=== PATIENT | male | born 1985 | race Caucasian/White ===

== ENCOUNTER 2024-01-06 16:21 | Emergency (ER) | payer OTHER, SELFPAY ==
[2024-01-06] VITALS (10 sets, daily range): BP systolic 136–154; BP diastolic 80–90; PULSE 67–80; RESP 12–20; TEMP 37.7; O2SAT 98–100
--- NOTE | ~2024-01-06 | XR_ITS ---
EXAMINATION: XR chest 1V portable DATE: 01/06/2024 16:48 INDICATION: Intermittent chest pain with palpitations TECHNIQUE: frontal view of the chest was obtained. COMPARISON: None FINDINGS: The lungs are clear with no focal airspace opacities, pulmonary edema, pleural effusion or pneumothor ax. The cardiomediastinal silhouette is normal. Visualized bones and soft tissues are unremarkable. IMPRESSION: 1. No acute cardiopulmonary disease. Reviewed, dictated and finalized at location A.
--- NOTE | 2024-01-06 16:22 | ECG_ITS ---
Measurements Intervals [place] Rate: 69 P: 55 NH: 141 QRS: 47 QRSD: 96 T: 27 QT: 389 QTc: 419 Interpretive Statements SINUS RHYTHM BASELINE ARTIFACT- I, II, III, AVR, AVL, AVF, V1-V6 NORMAL ECG NO PREVIOUS ECG AVAILABLE FOR COMPARISON Electronically Signed On 01-06-2024 19:21:12 CDT by Sky Coulter D.O.
[2024-01-06 16:40] LABS: Basophils Percent Auto 0.5 % (0.2-1.2); Eosinophils Percent Auto 0.5 % (0-4.4); Hematocrit 47.7 % (42.0-52.0); Immature Granulocyte Absolute 0.05 K/mm3 (0.00-0.031); Immature Granulocyte Percent A 0.6 % (0-0.5); Lymphocytes Absolute Auto 1.96 K/mm3 (0.9-3.2); Mean Corpuscular HGB Conc 33.5 g/dl (32-36); Mean Corpuscular Hemoglobin 30.5 pg (26-34); Mean Corpuscular Volume 90.9 fl (80-100); Monocytes Absolute Auto 0.7 K/mm3 (0.1-0.6); Monocytes Percent Auto 8.9 % (2.6-8.5); Neutrophils Absolute Auto 5.4 K/mm3 (1.3-6.7); Neutrophils Percent Auto 65.5 % (45.5-73.1); Platelet Count Result 219 k/mm3 (150-375); Red Blood Count 5.25 M/mm3 (4.6-6.20); Red Cell Distribution Width 12.6 % (11.5-14.5); White Blood Count 8.2 K/mm3 (4.5-10.0)
--- NOTE | 2024-01-06 16:45 | ED.CHESTPAIN ---
HPI - Chest Pain General Chief Complaint: Chest Pain Stated Complaint: chest pain Time Seen by Provider: 01/06/24 16:28 History of Present Illness HPI narrative: Pt has had heart palpitations for the last couple of days. Pt has had these in the past but not this bad. Today patient developed CP and SOB and felt light headed. This has been going on for the last couple of hours. Pt presented to the front lobby saying he was having a heart attack and was transported to the ER. Related Data Allergies Allergy/AdvReac Type Severity Reaction Status Date / Time soy Allergy Swelling Verified 01/06/24 16:49 of Lip/Tongue/Throat Review of Systems Review of Systems: All systems reviewed & are unremarkable except as noted in HPI and below Exam Const: General: healthy appearing and no acute distress Nutritional Appearance: well nourished Orientation/consciousness: patient oriented x3 Limitations: no limitations HENMT: Head: normal to inspection Resp: Effort & Inspection: normal respiratory effort Auscultation: clear to auscultation bilaterally Cardio: Rate: regular rate Rhythm: regular rhythm Other: occasional pvc GI: Auscultation: normal bowel sounds Back/Spine/Pelvis: Back: no CVA tenderness Skin: General skin exam: normal color Wounds: no wounds Neuro: General: patient oriented x3, moves all extremities and no focal motor deficits Cranial nerves: Yes Nystagmus not present Speech: normal speech Extrem: General: normal to inspection, no clubbing, cyanosis or edema and no pedal edema Psych: Mental Status: mental status grossly normal Affect: normal affect Attitude: cooperative Course Vital Signs Vital signs: Vital Signs Temperature 99.9 F H 01/06/24 16:25 Pulse Rate 75 01/06/24 16:25 Respiratory Rate 18 01/06/24 16:25 Blood Pressure 154/80 H 01/06/24 16:25 Pulse Oximetry 100 01/06/24 16:25 Oxygen Delivery Room Air 01/06/24 16:25 Temperature 99.9 F H 01/06/24 16:25 Pulse Rate 78 01/06/24 16:30 Respiratory Rate 14 01/06/24 16:29 Blood Pressure 154/80 H 01/06/24 16:29 Pulse Oximetry 98 01/06/24 16:37 Oxygen Delivery Room Air 01/06/24 16:37 MDM - Chest Pain MDM Narrative Medical decision making narrative: pt presents with palpitations and CP and SOB. Pt a bit anxious. PVC noted on monitor. Will check ekg and labs and get cxr will give asa and ativan 1 mg po. Pt feels better after meds. labs and trop fine and cxr fine. home on nsaids Lab Data 01/06/24 16:35 01/06/24 17:19 Labs: Lab Results 01/06/24 01/06/24 Range/Units 16:35 17:19 WBC 8.2 (4.5-10.0) K/mm3 RBC 5.25 (4.6-6.20) M/mm3 Hgb 16.0 (14.0-18.0) g/dL Hct 47.7 (42.0-52.0) % MCV 90.9 (80-100) fl MCH 30.5 (26-34) pg MCHC 33.5 (32-36) g/dl RDW 12.6 (11.5-14.5) % Plt Count 219 (150-375) k/mm3 MPV 11.0 H (7.4-10.4) fl Immature Gran % (Auto) 0.6 H (0-0.5) % Neut % (Auto) 65.5 (45.5-73.1) % Lymph % (Auto) 24.0 (18.3-44.2) % Cache % (Auto) 8.9 H (2.6-8.5) % Eos % (Auto) 0.5 (0-4.4) % Baso % (Auto) 0.5 (0.2-1.2) % Lymph # (Auto) 1.96 (0.9-3.2) K/mm3 Cache # (Auto) 0.7 H (0.1-0.6) K/mm3 Eos # (Auto) 0.0 (0-0.3) K/mm3 Baso # (Auto) 0.0 (0.0-0.1) K/mm3 Abs Immat Gran (auto) 0.05 H (0.00-0.031) K/mm3 Absolute Neuts (auto) 5.4 (1.3-6.7) K/mm3 Absolute Nucleated RBC 0.000 (0.0-0.012) K/mm3 Nucleated RBC % 0.0 (0.0-0.2) % PT 12.9 (11.1-14.7) Seconds INR 0.9 APTT 25.8 (22.3-36.8) Seconds Sodium 139 (137-145) mmol/L Potassium 4.2 (3.4-5.0) mmol/L Chloride 103 (98-107) mmol/L Carbon Dioxide 26 (22-30) mmol/L Anion Gap 10 (4-12) mmol/L BUN 12 (9-20) mg/dL Creatinine 0.90 (0.7-1.3) mg/dL Estim Creat Clear Calc 116 ml/min Estimated GFR > 60 (59 - ) Glucose 110 (65-110) mg/dL Calcium 10.3 H (8.4-10.2) mg/dL Total Bili
[2024-01-06] MEDS: ASPIRIN 81 MG CHEWABLE TABLET 324 MG PO (16:50)
[2024-01-06] MEDS: LORazepam (*CRX) 0.5 MG TABLET PO (16:51)
[2024-01-06 17:46] LABS: INR 0.9; Prothrombin Time 12.9 Seconds (11.1-14.7)
[2024-01-06 17:47] LABS: Partial Thromboplastin Time 25.8 Seconds (22.3-36.8)
[2024-01-06 18:27] LABS: Alanine Aminotransferase 108 U/L (6-50); Alkaline Phosphatase 66 U/L (38-126); Anion Gap 10 mmol/L (4-12); Aspartate Amino Transferase 67 U/L (17-59); Bilirubin,Total 0.9 mg/dL (0.2-1.3); Blood Urea Nitrogen 12 mg/dL (9-20); Calcium 10.3 mg/dL (8.4-10.2); Carbon Dioxide 26 mmol/L (22-30); Chloride 103 mmol/L (98-107); Estimated CRCL calculation 116 ml/min; Estimated Glomerular Filt Rate > 60; Glucose 110 mg/dL (65-110); Potassium 4.2 mmol/L (3.4-5.0); Sodium 139 mmol/L (137-145)
[2024-01-06 18:40] LABS: Troponin I < 0.012 ng/mL (0.000-0.034)
[2024-01-06 19:12] LABS: Lipase 64 U/L (23-300)
== END 2024-01-06 18:51 | disposition home or self-care (01) ==
PROVIDERS: Emergency Medicine; Emergency Provider Emergency Medicine
DX: R07.89 Other chest pain (principal); R00.2 Palpitations
CPT/HCPCS: 36415; 71045; 80053; 83690; 84484; 85025; 85610; 85730; 93005; 99284; A9270

== ENCOUNTER 2024-01-29 10:31 | Outpatient (CLI) | payer OTHER, SELFPAY ==
--- NOTE | 2024-01-29 10:38 | EST_ITS ---
Patient Info Name: Magdaleno Hunt Age: 38 years : 1985 Gender: Male Ht: 70 in Wt: 220 lbs BSA: 2.25 m2 HR: 67 bpm BP: 118 / 74 mmHg Heart Rhythm: Sinus Rhythm Exam Date: 01/29/2024 11:05 AM Exam Location: Echo Lab Patient Status: Outpatient Admit Date: 01/29/2024 Staff Ordering Physician: Sky Coulter DO Attending Provider: Sky Coulter DO Exercise Technologist: Vera Barahona RDCS Exercise Physician: Sky Coulter DO Exam Type: CA stress test treadmill Study Info A treadmill exercise stress test was performed. Summary 1. 1. Negative Diaz exercise stress test for ischemic ST changes by ECG criteria. 2. 2. Good functional capacity, achieving 10 METs of workload. 3. 3. Hypertensive response to exercise. 4. 4. Appropriate HR response to exercise. 5. 5. Appropriate HR recovery at 1 minute post exercise. 6. 6. No imaging with stress testing. 7. 7. Patient informed of the above results. Protocol: Diaz Stress ECG Details Stage: REST Duration (min): 1 min : 15 sec Speed (mph): 0.0 Grade (%): 0 HR (bpm): 72 SBP (mmHg): 118 DBP (mmHg): 74 METS: --- Stage: REST Duration (min): 3 min : 11 sec Speed (mph): 0.0 Grade (%): 0 HR (bpm): 92 SBP (mmHg): 118 DBP (mmHg): 74 METS: --- Stage: STAGE 1 Duration (min): 1 min : 0 sec Speed (mph): 1.7 Grade (%): 10 HR (bpm): 98 SBP (mmHg): 118 DBP (mmHg): 74 METS: --- Stage: STAGE 1 Duration (min): 2 min : 0 sec Speed (mph): 1.7 Grade (%): 10 HR (bpm): 102 SBP (mmHg): 118 DBP (mmHg): 74 METS: --- Stage: STAGE 1 Duration (min): 3 min : 0 sec Speed (mph): 1.7 Grade (%): 10 HR (bpm): 104 SBP (mmHg): 164 DBP (mmHg): 76 METS: --- Stage: STAGE 2 Duration (min): 1 min : 0 sec Speed (mph): 2.5 Grade (%): 12 HR (bpm): 113 SBP (mmHg): 164 DBP (mmHg): 76 METS: --- Stage: STAGE 2 Duration (min): 2 min : 0 sec Speed (mph): 2.5 Grade (%): 12 HR (bpm): 119 SBP (mmHg): 172 DBP (mmHg): 87 METS: --- Stage: STAGE 2 Duration (min): 3 min : 0 sec Speed (mph): 2.5 Grade (%): 12 HR (bpm): 122 SBP (mmHg): 172 DBP (mmHg): 87 METS: --- Stage: STAGE 3 Duration (min): 1 min : 0 sec Speed (mph): 3.4 Grade (%): 14 HR (bpm): 136 SBP (mmHg): 217 DBP (mmHg): 78 METS: --- Stage: STAGE 3 Duration (min): 2 min : 0 sec Speed (mph): 3.4 Grade (%): 14 HR (bpm): 146 SBP (mmHg): 217 DBP (mmHg): 78 METS: --- Stage: STAGE 3 Duration (min): 3 min : 0 sec Speed (mph): 3.4 Grade (%): 14 HR (bpm): 158 SBP (mmHg): 192 DBP (mmHg): 80 METS: --- Stage: STAGE 4 Duration (min): 0 min : 3 sec Speed (mph): 4.2 Grade (%): 16 HR (bpm): 159 SBP (mmHg): 192 DBP (mmHg): 80 METS: --- Stage: RECOVERY Duration (min): 0 min : 56 sec Speed (mph): 0.0 Grade (%): 0 HR (bpm): 125 SBP (mmHg): 192 DBP (mmHg): 80 METS: --- Stage: RECOVERY Duration (min): 1 min : 56 sec Speed (mph): 0.0 Grade (%): 0 HR (bpm): 111 SBP (mmHg): 192 DBP (mmHg): 80 METS: --- Stage: RECOVERY Duration (min): 2 min : 56 sec Speed (mph): 0.0 Grade (%): 0 HR (bpm): 105 SBP (mmHg): 146 DBP (mmHg): 70 METS: --- Stage: RECOVERY Duration (min): 3 min : 56 sec Speed (mph): 0.0 Grade (%): 0 HR (bpm): 104 SBP (mmHg): 146 DBP (mmHg): 70 METS: --- Stage: RECOVERY Duration (min): 4 min : 56 sec Speed (mph): 0.0 Grade (%): 0 HR (bpm): 103 SBP (mmHg): 142 DBP (mmHg): 87 METS: --- Stage: RECOVERY Duration (min): 5 min : 22 sec Speed (mph): 0.0 Grade (%): 0 HR (bpm): 101 SBP (mmHg): 142 DBP (mmHg): 87 METS: --- Rest HR: 92 bpm Peak HR: 159 bpm Rest Sys BP: 118 mmHg Peak Sys BP: 217 mmHg Max Pred HR: 182 bpm % Max Pred HR: 87 % Target HR: 155 bpm Max RPP: 34,503 bpm*mmHg Ochoa Score: 1 BP Response: Patient exhibited a hypertensive response with stress Termination Reason: Reached target heart rate or workload Cardiac Symptoms: Shortness of breath Max ST Seg Deviation: 1.60 mm Total Time: 9 min : 3 sec Rest Montes BP: 74 mmHg Peak Montes BP: 78 mmHg Angina Score: None Total METS: 10.3 Resting ECG Sinus rhythm. Stress ECG No ST changes with exercise. Arrhythmias Transient atrial tachycardia at peak exercise. Report Signatures
== END 2024-01-29 10:32 | disposition home or self-care (01) ==
LOC: ANHCARD 10:36
PROVIDERS: Visit Provider Internal Medicine Cardiovascular Disease
DX: R07.9 Chest pain, unspecified (principal)
CPT/HCPCS: 93017

== ENCOUNTER 2024-11-09 22:08 | Emergency (ER) | payer OTHER, SELFPAY ==
[2024-11-09 22:10] VITALS: BP 172/80; PULSE 100; RESP 16; TEMP 36.7; O2SAT 100
--- OUTSIDE RECORDS SUMMARY | 2024-11-09 22:10 | XMS_ITS | Referral Summary ---
Author Organization [address] Address [address] [place] [address] Care Team Providers Care Spiral Winder Name Role Phone No, Physician Primary Care Provider [phone] Encounters Date Type Department Care Team Description 08/16/2024 Telephone [facility] Otolaryngology [address] [place] [phone] Katia Lizama LPN Go back to previous dose of Famotidine from Last 3 Months Allergies Active Allergy Reactions Criticality Noted Date Comments Nut.Tx,Ketogenic,Milk-Soy Hives,Swelling Medium 2021 Medications famotidine (PEPCID) 40 mg tabletIndication s:Laryngopharyng eal reflux (LPR) Take 1 tablet (40 mg total) by mouth 2 (two) times a day 60 tablet 3 08/17/2024 5 Active Active Problems Problem Noted Date Diagnosed Date Laryngopharyngeal reflux (LPR) 12/19/2022 Resolved Problems Problem Noted Date Diagnosed Date Resolved Date Right ear pain 05/27/2022 08/08/2022 Assessment & Plan (05/27/2022 9:27 PM CDT): I reassured him that his right ear exam was normal. I do not see any evidence of fluid or infection. His hearing test was normal also as was his tympanogram. I do not find any evidence of an ear infection or inflammation. I talked with the patient about possible reasons for ear pain that could be coming from another source. There is some potential for TMJ disorder to cause this. Also some potential for ear pain due to cervical strain or shoulder problems. He may grind his teeth and that could cause this also. He might want to consider seeing his dentist. It is also possible that throat irritation can cause referred ear pain. I am going to treat his reflux symptoms and see how things go. If his ear symptoms continue I may recommend referral to 1 of the director of promotions. Dysphagia 05/27/2022 03/18/2024 Assessment & Plan (05/27/2022 9:25 PM CDT): I reassured him that his throat looks fine. I think his symptoms could be related to reflux disease. We discussed laryngopharyngeal reflux disease. It could be causing these symptoms. It can be improved through dietary management and we talked about various dietary changes to consider. Also discussed aggressive treatment through twice a day proton pump inhibitors. I also provided some literature regarding this type of reflux and this included instructions on dietary management. We also discussed the potential long-term side effects of proton pump inhibitors including liver and kidney disease and increased risk of dementia. I do not intend to continue treatment with this medication indefinitely unless there was no other way to get the symptoms under control and the patient wishes to continue taking them. I am prescribing omeprazole 40 mg twice a day. I am also going to have him take a steroid pack. The plan is for a follow-up in about 4 weeks. Social History Tobacco Use Types Packs/Day Years Used Date Smoking Tobacco: Every Day Cigarettes Vaping Smokeless Tobacco: Never Tobacco Cessation:Ready to Q uit: Not Asked; Counseling Given: Not Answered Sex and Gender Information Value Date Recorded Sex Assigned at Not on file Legal Sex Male 3:28 PM CDT Gender Identity Not on file Sexual Orientation Not on file Last Filed Vital Signs Vital Sign Reading Time Taken Comments Blood Pressure - - Pulse - - Temperature - - Respiratory Rate 18 03/18/2024 3:29 PM CDT Oxygen Saturation - - Inhaled Oxygen Concentration - - Weight 99.8 kg (220 lb) 03/18/2024 3:29 PM CDT Height 177.8 cm (5' 10 ) 03/18/2024 3:29 PM CDT Body Mass Index 31.57 03/18/2024 3:29 PM CDT Plan of Treatment Not on file Insurance [facility] OPTIONS PPO [facility] HMO/PPO Address: [place] [address] Care Teams Spiral Winder Relationship Specialty Start Date End Date No, Physician PCP - General 05/07/22
--- OUTSIDE RECORDS SUMMARY | 2024-11-09 22:10 | XMS_ITS | Clinical Summary ---
Author Organization [facility] [address] Address [address] [place] [address] Care Team Providers Care Animal Nutritionist Name Role Phone No, Physician Primary Care Provider [phone] Allergies Active Allergy Reactions Criticality Noted Date [...] may recommend referral to 1 of the sanitation truck driver. Dysphagia 05/27/2022 03/18/2024 Assessment & Plan (05/27/2022 [...] for a follow-up in about 4 weeks. Encounters Date Type Department Care Team Description 08/16/2024 Telephone [facility] Otolaryngology [address] [place] [phone] Katia Lizama LPN Go back to previous dose of Famotidine from Last 3 Months Medical History Medical History Date Comments Allergic rhinitis Ear problems GERD (gastroesophageal reflux disease) Dysphagia Family History Medical History Relation Name Comments No Known Problems Father No Known Problems Mother Relation Name Status Comments Father Mother Social History Tobacco Use Types Packs/Day Years Used Date Smoking Tobacco: Every Day Cigarettes Vaping Smokeless Tobacco: Never Tobacco Cessation:Ready to Q uit: Not Asked; Counseling Given: Not Answered Sex and Gender Information Value Date Recorded Sex Assigned at Not on file Legal Sex Male 3:28 PM CDT Gender Identity Not on file Sexual Orientation Not on file Obstetrics History Last Filed Vital Signs Vital Sign Reading [...] 03/18/2024 3:29 PM CDT Plan of Treatment Health Maintenance Due Date Last Done Comments Depression Screening 1985 Hepatitis C Screening 1985 Pneumococcal vaccine <65 (1 of 2 - PCV) 1991 DTaP/Tdap/Td Vaccine (1 - Tdap) 1996 Varicella Vaccines (1 of 2 - 13+ 2-dose series) 1998 Hepatitis B Screening 2003 Regular Well Visit/Exam 18-64 2003 Influenza Vaccine (#1) 2024 HPV Vaccines Aged Out No longer eligi ble based on patient's age to complete this topic Insurance OPTIONS PPO [facility] H[facility]/PPO Address: [facility] [address] [place] [address] Care Teams Animal Nutritionist Relationship Specialty Start Date End Date No, Physician PCP - General 05/07/22
--- OUTSIDE RECORDS SUMMARY | 2024-11-09 23:11 | XMS_ITS | Clinical Summary ---
Author Organization [facility] [address] Address [address] [place] [address] Care Team Providers Care Obstetrics Gyn Physician Name Role Phone No, Physician Primary Care Provider [phone] Allergies Active Allergy Reactions Criticality Noted Date [...] may recommend referral to 1 of the folder hand. Dysphagia 05/27/2022 03/18/2024 Assessment & Plan (05/27/2022 [...] Type Department Care Team Description 08/16/2024 Telephone [facility] Otolaryngology [address] [place] [phone] Katia Lizama LPN Go back to [...] complete this topic Insurance OPTIONS PPO [facility] HMO/PPO Address: [facility] [address] [place] [address] Care Teams Obstetrics Gyn Physician Relationship Specialty Start Date End Date No, Physician PCP - General 05/07/22
--- OUTSIDE RECORDS SUMMARY | 2024-11-09 23:11 | XMS_ITS | Referral Summary ---
Author Organization [address] Address [address] [place] [address] Care Team Providers Care Vacuum Caster Name Role Phone No, Physician Primary Care Provider [phone] Encounters Date Type Department Care Team Description 08/16/2024 Telephone [facility] Otolaryngology [address] [place] [phone] Katia Lizama LPN Go back to [...] may recommend referral to 1 of the associate director of nursing. Dysphagia 05/27/2022 03/18/2024 Assessment & Plan (05/27/2022 [...] Plan of Treatment Not on file Insurance [facility] OPTIONS PPO Care Teams Vacuum Caster Relationship Specialty Start Date End Date No, Physician PCP - General 05/07/22
--- NOTE | 2024-11-09 23:15 | PC.NURSE ---
Patient up to intake desk stating it feels like whatever was stuck in his throat is gone now and he is going to leave.
== END 2024-11-09 23:15 | disposition left against medical advice (07) ==
DX: R13.10 Dysphagia, unspecified (principal)
CPT/HCPCS: 99199

== ENCOUNTER 2025-02-03 14:17 | Outpatient (CLI) | payer OTHER, SELFPAY ==
--- NOTE | ~2025-02-03 | XR_ITS ---
EXAMINATION: XR barium swallow DATE: 02/03/2025 14:47 INDICATION: Dysphagia TECHNIQUE: The patient drank thick barium, gas-producing crystals, and thin barium. Fluoroscopic spot radiographs of the hypopharynx and esophagus were obtained. A total of 1186 fluoroscopic images were obtained. Fluoroscopy exposure time was 1.6 minutes. Total DAP was 11.827 mGycm^2. COMPARISON: None. FINDINGS: The pharynx is symmetric and without evidence of mass lesion or mucosal irregularity. The e sophagus is normal without mass or stricture. Esophageal motility is normal. Gastroesophageal junctio n is positioned 2 cm above level of the diaphragm which is at the upper limits of normal. There was n o gastroesophageal reflux with provocative maneuvers. IMPRESSION: 1. Borderline sliding-type hiatal hernia with gastroesophageal junction 2 cm above level of the diaph ragm. No evident gastroesophageal reflux. Reviewed, dictated and finalized at location A. IMPRESSION: 1. Borderline sliding-type hiatal hernia with gastroesophageal junction 2 cm ab ove level of the diaphragm. No evident gastroesophageal reflux.
--- OUTSIDE RECORDS SUMMARY | 2025-02-03 14:21 | XMS_ITS | Encounter Summary ---
Author Organization [facility] Address [address] [place] [address] Phone Care Team Providers Care Veneer Grader Name Role Phone No, Physician Primary Care Provider [phone] Reason for Visit * Reason Onset Date Comments Barium Swallow canceled 02/03/2025 Encounter Details Date Type Department Care Team (Late st Contact Info) Description 02/03/2025 Telephone [facility] Otolaryngology [address] [place] [phone] Katia Lizama LPN Barium Swallow canceled Social History Tobacco Use Types Packs/Day Years Used Date Smoking Tobacco: Every Day Cigarettes Vaping Smokeless Tobacco: Never Sex and Gender Information Value Date Recorded Sex Assigned at Not on file Legal Sex Male 3:28 PM CDT Gender Identity Not on file Sexual Orientation Not on file documented as of this encounter Miscellaneous Notes * Telephone Encounter - Katia Lizama LPN - 02/03/2025 10:35 AM CDT Patient wanted his Barium Swallow ordered at [facility]. It was ordered 11/18/24. Multiple messages have been left for him to call back with an update on the status of the scan. He does not return any calls. The order has been canceled at this time. If he would like to proceed with it, he willneed to call the office. documented in this encounter Plan of Treatment Not on file documented as of this encounter Visit Diagnoses Not on filedocumented in this encounter Care Teams Veneer Grader Relationship Specialty Start Date End Date No, Physician PCP - General 05/07/22 documented as of this encounter
--- OUTSIDE RECORDS SUMMARY | 2025-02-03 14:21 | XMS_ITS | Referral Summary ---
Author Organization [address] [address] Care Team Providers Care Business Center Representative Name Role Phone No, Physician Primary Care Provider [phone] Encounters Date Type Department Care Team Description 02/03/2025 Telephone [facility] Otolaryngology [address] [place] [phone] Katia Lizama LPN Barium Swallow canceled 01/17/2025 Telephone [facility] Otolaryngology [address] [place] [phone] Katia Lizama LPN Update on Barium Swallow 11/18/2024 3:00 PM ASSURANCE SERVICES MANAGER [facility] Office Visit [facility] Otolaryngology [address] [place] [phone] Nhi Chavez NP Tinnitus of both ears (Primary Dx); Laryngopharyngeal reflux (LPR); Dysphagia, unspecified type; Impacted cerumen of left ear 11/18/2024 2:30 PM ASSURANCE SERVICES MANAGER [facility] CARE Procedure visit [facility] Otolaryngology [address] [place] [phone] Daniela Stokes Au.D. Tinnitus, right (Primary Dx) from Last 3 Months Allergies Active Allergy Reactions Criticality Noted Date Comments Nut.Tx,Ketogenic,Milk-Soy Hives,Swelling Medium 2021 Medications famotidine (PEPCID) 40 mg tabletIndication s:Laryngopharyng eal reflux (LPR) TAKE 1 TABLET BY MOUTH TWICE A DAY 180 tablet 1 11/10/2024 Active Active Problems Problem Noted Date Diagnosed Date Tinnitus of both ears 11/18/2024 Impacted cerumen of left ear 11/18/2024 Laryngopharyngeal reflux (LPR) 12/19/2022 Dysphagia 05/27/2022 Assessment & Plan (05/27/2022 9:25 PM CDT): [...] for a follow-up in about 4 weeks. Resolved Problems Problem Noted Date Diagnosed Date [...] may recommend referral to 1 of the storeroom supervisor. Social History Tobacco Use Types Packs/Day Years [...] - Temperature - - Respiratory Rate 18 11/18/2024 2:43 PM ASSURANCE SERVICES MANAGER [facility] CARE Oxygen Saturation - - Inhaled Oxygen Concentration - - Weight 99.8 kg (220 lb) 11/18/2024 2:43 PM ASSURANCE SERVICES MANAGER [facility] CARE Height 177.8 cm (5' 10 ) 11/18/2024 2:43 PM ASSURANCE SERVICES MANAGER [facility] CARE Body Mass Index 31.57 11/18/2024 2:43 PM ASSURANCE SERVICES MANAGER [facility] CARE Plan of Treatment Not on file Insurance OPTIONS PPO [facility] HMO/PPO Address: [place] [address] Care Teams Business Center Representative Relationship Specialty Start Date End Date No, Physician PCP - General 05/07/22
--- OUTSIDE RECORDS SUMMARY | 2025-02-03 14:21 | XMS_ITS | Clinical Summary ---
Author Organization [facility] [address] [employer] Address [address] [place] [address] Care Team Providers Care Fisher Gill Net Name Role Phone No, Physician Primary Care Provider [phone] Allergies Active Allergy Reactions Criticality Noted Date [...] may recommend referral to 1 of the staff software engineer. Encounters Date Type Department Care Team Description 02/03/2025 Telephone [facility] Otolaryngology [address] [place] [phone] Katia Lizama LPN Barium Swallow canceled 01/17/2025 Telephone [facility] Otolaryngology [address] [place] [phone] Katia Lizama LPN Update on Barium Swallow 11/18/2024 3:00 PM RN INTERNATIONAL Office Visit [facility] Otolaryngology [address] [place] [phone] Nhi Chavez NP Tinnitus of both ears (Primary Dx); Laryngopharyngeal reflux (LPR); Dysphagia, unspecified type; Impacted cerumen of left ear 11/18/2024 2:30 PM RN INTERNATIONAL Procedure visit [facility] Otolaryngology [address] [place] [phone] Daniela Stokes Au.D. Tinnitus, right (Primary Dx) from Last 3 Months Medical History Medical History Date Comments Allergic rhinitis Ear problems GERD (gastroesophageal reflux disease) Dysphagia Tinnitus Family History Medical History Relation Name Comments [...] - Respiratory Rate 18 11/18/2024 2:43 PM RN INTERNATIONAL Oxygen Saturation - - Inhaled Oxygen Concentration - - Weight 99.8 kg (220 lb) 11/18/2024 2:43 PM RN INTERNATIONAL Height 177.8 cm (5' 10 ) 11/18/2024 2:43 PM RN INTERNATIONAL Body Mass Index 31.57 11/18/2024 2:43 PM RN INTERNATIONAL Plan of Treatment Health Maintenance Due Date Last Done Comments Depression Screening 1985 Hepatitis C Screening 1985 DTaP/Tdap/Td Vaccine (1 - Tdap) 1996 Varicella Vaccines (1 of 2 - 13+ 2-dose series) 1998 Hepatitis B Screening 2003 Regular Well Visit/Exam 18-64 2003 Pneumococcal vaccine <65 (1 of 2 - PCV) 2004 Influenza Vaccine (Season Ended) 2025 HPV Vaccines Aged Out No longer eligi ble based on patient's age to complete this topic Insurance [facility] [place] [address] Care Teams Fisher Gill Net Relationship Specialty Start Date End Date No, Physician PCP - General 05/07/22
== END 2025-02-03 14:18 | disposition home or self-care (01) ==
DX: K44.9 Diaphragmatic hernia without obstruction or gangrene (principal); K22.82 Esophagogastric junction polyp
CPT/HCPCS: 74220